=== PATIENT | female | born 1995 | race Asian ===

== ENCOUNTER 2018-08-16 22:48 | Emergency (ER) | payer OTHER ==
[~2018-08-16] VITALS: Ht 162.6 cm; Wt 67.7 kg
--- NOTE | 2018-08-16 23:10 | NUR ---
Pt ambulated to ER with c/o throat discomfort after swallowing a hot cheetoh chip at around 1330 today. Pt states she went to urgent care earlier and was discharged. Pt respirations even + unlabored. Speech clear. No acute distress noted.
[2018-08-16] MEDS ORDERED: LIDOCAINE VISCUS 2% 15 ML UDC MM ONE (23:30)
[2018-08-16] MEDS ORDERED: LIDOCAINE VISCUS 2% 15 ML UDC ONE (23:32)
--- NOTE | 2018-08-16 23:44 | NUR ---
Patient discharged to home in stable conditon. Written and verbal after care instructions given. Patient verbalizes understanding of instructions.
[2018-08-16 23:45] VITALS: BP 110/66
== END 2018-08-16 23:45 | disposition home or self-care (01) ==
LOC: ER 22:48
DX: T17.208A Unspecified foreign body in pharynx causing other injury, initial encounter (principal); X58.XXXA Exposure to other specified factors, initial encounter; Y93.89 Activity, other specified; Y92.89 Other specified places as the place of occurrence of the external cause; Y99.8 Other external cause status
CPT/HCPCS: A4663

== ENCOUNTER 2018-09-15 21:29 | Inpatient (IN) | payer OTHER ==
[~2018-09-15] VITALS: Ht 162.6 cm; Wt 63.5 kg
--- NOTE | 2018-09-15 21:35 | NUR ---
Sergey rogers in [facility] - 09/15/18 at 2227 by DIANA EK done.
[2018-09-15] MEDS ORDERED: ASPIRIN 81 MG TAB.CHEW PO ONE (22:15)
[2018-09-15] MEDS ORDERED: ASPIRIN 81 MG TAB.CHEW ONE (22:16)
--- NOTE | 2018-09-15 22:27 | NUR ---
Patient is resting comfortably on gurney while using her personal electronic device, pending results and disposition, NAD.
[2018-09-15 22:29] LABS: BASOPHILS # (AUTO) 0.1 K/uL (0.0-8.0); BASOPHILS % (AUTO) 0.8 % (0.0-2.0); EOSINOPHILS # (AUTO) 0.1 K/uL (0.0-0.7); EOSINOPHILS % (AUTO) 0.8 % (0.0-7.0); HEMATOCRIT 40.6 % (31.2-41.9); HEMOGLOBIN 13.9 g/dL (10.9-14.3); LYMPHOCYTES # (AUTO) 3.3 K/uL (20.0-40.0); LYMPHOCYTES % (AUTO) 37.2 % (20.5-51.5); MEAN CORPUSCULAR HEMOGLOBIN 31.1 uug (24.7-32.8); MEAN CORPUSCULAR HGB CONC 34 g/dL (32.3-35.6); MEAN CORPUSCULAR VOLUME 90.5 fL (75.5-95.3); MONOCYTES # (AUTO) 0.6 K/uL (2.0-10.0); MONOCYTES % (AUTO) 6.6 % (0.0-11.0); NEUTROPHILS # (AUTO) 4.8 K/uL (1.8-8.9); NEUTROPHILS % (AUTO) 54.6 % (38.5-71.5); RED BLOOD CELL COUNT(AUTO) 4.48 MIL/uL (3.63-4.92); WHITE BLOOD COUNT (AUTO) 8.8 K/uL (3.8-11.8)
[2018-09-15 22:31] LABS: CREATININE 0.7 mg/dL (0.6-1.3); POTASSIUM 3.3 mmol/L (3.5-5.1)
[2018-09-15 22:37] LABS: BILIRUBIN,DIRECT 0.1 mg/dL (0.0-0.2); BILIRUBIN,TOTAL 0.5 mg/dL (0.2-1.0); TOTAL PROTEIN, SERUM 8.3 g/dL (6.4-8.2)
[2018-09-15 22:46] LABS: PLATELET COUNT (AUTO) 209 K/uL (179-408)
--- NOTE | 2018-09-15 23:39 | NUR ---
patient received fro er per vance with cc of chest pain on and off for 6 days with cough and chest congestion. fixed in bed and made comfoprtable.
--- NOTE | 2018-09-15 23:46 | NUR ---
Pt. admitted to TELE , under care of [facility] completed
[2018-09-16] MEDS ORDERED: MORPHINE SULFATE 4 MG/1 ML DISP.SYRIN IV PRN
[2018-09-16] MEDS ORDERED: NITROGLYCERIN 0.4 MG/TAB BOTTLE SL PRN
[2018-09-16 00:01] VITALS: BP 108/70
--- NOTE | 2018-09-16 00:56 | NUR ---
patient room mate in to bring patient stuff and patient slept therafter, with call light at bedside Addendum: 09/16/18 at 0058 by ENRICO SUN RN within patient,s reach
--- NOTE | 2018-09-16 01:38 | NUR ---
patient did not received flu and pneumonia vaccine will clarify if patient wants the flu vaccine
--- NOTE | 2018-09-16 03:13 | NUR ---
patient is asleep
[2018-09-16 04:00] VITALS: BP 108/64
--- NOTE | 2018-09-16 05:56 | NUR ---
k 3.3 . trop 0.529. cbc,cmp, troponin ordered,will call Dr Diggs for the orders for K level 3.3.
--- NOTE | 2018-09-16 06:11 | NUR ---
Martin NURSE INFORMED NEEDS TO CALL DR BE FOR THE K LEVEL 3.3 AND ORDERED TO WAIT FOR THE MORNING TO CALL. LABS DRAWN ,AWAITING RESPONSE
--- NOTE | 2018-09-16 07:03 | NUR ---
DR BE PAGED FOR K LEVEL 3.3, FOR ORDERS, AND THE CLARIFY THE ORDERS FOR TROPONIN IF HE WANTS IT SERIES. ORDERED ONE TODAY. MESSAGE LEFT WITH THE EXCHANGE, AWAITING RESPONSE
--- NOTE | 2018-09-16 07:25 | NUR ---
DR BOLANOS CALLED BACK AND PATIENT HAS ORDERED FOR TROPONIN Q8H AND K LEVEL WILL BE RPLACED BY THE PHARMACY PROTOCOL,
[2018-09-16 07:27] LABS: BASOPHILS % (AUTO) 0.6 % (0.0-2.0); EOSINOPHILS % (AUTO) 0.5 % (0.0-7.0); HEMATOCRIT 38.6 % (31.2-41.9); HEMOGLOBIN 13.1 g/dL (10.9-14.3); LYMPHOCYTES # (AUTO) 2.3 K/uL (20.0-40.0); LYMPHOCYTES % (AUTO) 31.8 % (20.5-51.5); MEAN CORPUSCULAR HEMOGLOBIN 30.9 uug (24.7-32.8); MEAN CORPUSCULAR HGB CONC 34 g/dL (32.3-35.6); MONOCYTES # (AUTO) 0.5 K/uL (2.0-10.0); MONOCYTES % (AUTO) 7.4 % (0.0-11.0); NEUTROPHILS # (AUTO) 4.4 K/uL (1.8-8.9); NEUTROPHILS % (AUTO) 59.7 % (38.5-71.5); PLATELET COUNT (AUTO) 226 K/uL (179-408); RED BLOOD CELL COUNT(AUTO) 4.24 MIL/uL (3.63-4.92); WHITE BLOOD COUNT (AUTO) 7.3 K/uL (3.8-11.8)
[2018-09-16 08:18] LABS: CREATININE 0.7 mg/dL (0.6-1.3); POTASSIUM 3.7 mmol/L (3.5-5.1)
[2018-09-16] MEDS: CARVEDILOL 6.25 MG TABLET PO SCH ×2 (09:35→17:40)
[2018-09-16] MEDS: ASPIRIN 81 MG TAB.CHEW PO SCH (09:36)
[2018-09-16 10:59] LABS: *URINE HCG, QUAL NEGATIVE (NEGATIVE)
[2018-09-16 11:10] VITALS: BP 104/60
[2018-09-16] MEDS ORDERED: NORMAL SALINE FLUSH 10 ML DISP.SYRIN ONE (13:40)
[2018-09-16] MEDS ORDERED: SWABABLE VALVE TRANSFER SET EA MC ONE (13:40)
[2018-09-16] MEDS ORDERED: IOHEXOL 350 100 ML INFUS..BTL ONE (13:41)
[2018-09-16] MEDS ORDERED: IV NORMAL SALINE 250 ML IV ONE (13:41)
[2018-09-16 14:22] LABS: THYROID STIMULATING HORMONE 2.677 mIU/mL (0.358-3.740)
[2018-09-16 15:05] VITALS: BP 93/53
--- NOTE | 2018-09-16 20:00 | NUR ---
Received patient laying in bed. Friends at bedside. Denies pain at the moment. A/O x 4. IV on the left FA, patent and intact. No acute distress noted. Safety initiated. Call light within reach. Will continue to monitor.
[2018-09-16 20:41] VITALS: BP 104/72
[2018-09-17 00:54] VITALS: BP 100/57
[2018-09-17 04:00] VITALS: BP 107/68
--- NOTE | 2018-09-17 05:38 | NUR ---
NO changes t/o shift. Patient slept t/o shift. On Room air. TELE SB at 55. Denies chest pain at the moment. No distress noted. Patient IV on the Left FA, patent and intact. Vital signs stable. Safety and comfort measures maintained t/o shift. Bed in low and locked position. Room is kept clutter free. All needs met.
[2018-09-17] MEDS: CARVEDILOL 6.25 MG TABLET PO SCH ×2 (08:00→17:38)
[2018-09-17] MEDS: ASPIRIN 81 MG TAB.CHEW PO SCH (08:57)
--- NOTE | 2018-09-17 08:57 | NUR ---
patient continues NPO this am scheduled for CT angiogram. Coreg not given, no ASA at this time.
--- NOTE | 2018-09-17 09:55 | NUR ---
PATIENT CONTINUES NPO, LEFT FOR CT ANGIOGRAM AT THIS TIME VIA ALS
[2018-09-17 11:16] VITALS: BP 104/61
--- NOTE | 2018-09-17 13:10 | NUR ---
PATIENT RETURNED TO FLOOR AT THIS TIME VITALS STABLE. DENIES ANY DISTRESS.
[2018-09-17 13:21] VITALS: BP 94/68
[2018-09-17 15:02] VITALS: BP 103/61
--- NOTE | 2018-09-17 16:33 | NUR ---
Paged Dr Diggs thru [employer] to verify clearance. Dr Farah pagebill thru his office exchange to verify clearance.
--- NOTE | 2018-09-17 17:38 | NUR ---
Per [facility], Dr Farah , do not administer Coreg. Patient medically cleared to be discharged.
--- NOTE | 2018-09-17 19:20 | NUR ---
PATIENT DISCHARGE INSTRUCTIONS GIVEN, PATIENT INSTRUCTED TO FOLLOW UP WITH PCP AND ENGINE OILER WITHIN ONE TO TWO WEEKS.VERBALIZED UNDERSTANDING. BELONGINGS RETURNED AND ACCOUNTED FOR, IV LINE REMOVED ID BAND REMOVED, QUESTIONS AND CONCERNS ADDRESSED
== END 2018-09-17 19:18 | disposition home or self-care (01) | DRG 282 ==
LOC: ER 21:31 → TELE 22:59
PROVIDERS: ADMIT Internal Medicine; ATTEND Internal Medicine
PROC: B2211ZZ Computerized Tomography (CT Scan) of Multiple Coronary Arteries using Low Osmolar Contrast (ICD-10-PCS; principal; 2018-09-17)
DX: I40.0 Infective myocarditis (principal); I21.A1 Myocardial infarction type 2; B97.89 Other viral agents as the cause of diseases classified elsewhere; J06.9 Acute upper respiratory infection, unspecified
CPT/HCPCS: 36415; 70030-TC; 84443; 84703; 85025; 93005; 93307; A4663; G0378; J3490; J7050; Q9967